=== PATIENT | male | born 1995 | race Caucasian/White ===

== ENCOUNTER 2017-02-26 10:33 | Outpatient (CLI) | payer MEDICAID | END 2017-02-26 10:34 | disposition home or self-care (01) | LOC: SC 10:33 | PROVIDERS: ATTEND Internal Medicine Pulmonary Disease | DX: G47.30 Sleep apnea, unspecified (principal); G47.10 Hypersomnia, unspecified; R06.83 Snoring; G47.8 Other sleep disorders | CPT/HCPCS: 99203; 99212 ==

== ENCOUNTER 2017-03-01 10:10 | Day surgery (SDC) | payer MEDICAID ==
[2017-03-01] MEDS ORDERED: AMPICILLIN/SULBACTAM 3 GM in SODIUM CHLORIDE 0.9% MINIBAG 100 ML IV ONE (10:11)
[2017-03-01] MEDS ORDERED: LACTATED RINGERS 1,000 ML IV ONE ×2 (10:18→13:29)
[2017-03-01] MEDS ORDERED: METHYLENE BLUE 0.5% 50 MG/10 ML AMPULE IR ONE (12:44)
[2017-03-01] MEDS ORDERED: BUPIVACAINE 0.5% PF 30 ML VIAL INFIL ONE ×2 (12:44)
[2017-03-01] MEDS ORDERED: SUCCINYLCHOLINE 200 MG/10 ML VIAL IVP ONE (12:45)
[2017-03-01] MEDS ORDERED: MIDAZOLAM 2 MG/2 ML VIAL IVP ONE (12:45)
[2017-03-01] MEDS ORDERED: ONDANSETRON 4 MG/2 ML VIAL IVP ONE (12:45)
[2017-03-01] MEDS ORDERED: PROPOFOL 200 MG/20 ML VIAL IVP ONE (12:45)
[2017-03-01] MEDS ORDERED: LIDOCAINE-MPF 2% 5 ML VIAL IM ONE (12:45)
[2017-03-01] MEDS ORDERED: fentaNYL 100 MCG/2 ML VIAL IVP ONE (12:45)
[2017-03-01] MEDS ORDERED: DEXAMETHASONE 4 MG/ML VIAL IVP ONE (12:45)
[2017-03-01] MEDS ORDERED: ROCURONIUM 50 MG/5 ML VIAL IVP ONE (12:45)
[2017-03-01] MEDS: HYDROmorphone 1 MG/ML SYRINGE ONE ×2 (13:28→13:43)
[2017-03-01] MEDS ORDERED: ACETAMINOPHEN 1,000 MG/100 ML 100 ML IV ONE (13:31)
[2017-03-01] MEDS ORDERED: HYDROcod/ACETAM 5/325 MG TABLET ONE (14:33)
[2017-03-01 14:55] VITALS: BP 135/77
--- NOTE | 2017-03-04 05:49 | OPERATIVE REPORT ---
DATE OF SURGERY: 03/01/2017 00:00:00 PREOPERATIVE DIAGNOSIS: Recurrent pilonidal cyst disease. POSTOPERATIVE DIAGNOSIS: Recurrent pilonidal cyst disease. NAME OF PROCEDURE: OPERATING SURGEON: Julio Chen MD ANESTHESIA: General. INDICATIONS FOR PROCEDURE: The patient is a 21-year-old male who had underwent a pilonidal cyst excis ion with primary closure a year ago. He has now noticed drainage. On physical exam, he has a pit just inferior to his previously placed incisional scar. This appears to have developed since his surgery. He would like to have the area excised as it does occasionally drain and cause discomfort. FINDINGS AT PROCEDURE: The patient had a depression at the end of his previous incisional scar. This could represent a pit that had enlarged versus scar tissue pulling out the tissue and creating the pi t. This will be a set up for further infection and drainage, whether it is a recurrence or just a dep ression. Therefore, it is recommended he undergo excision of this area. FINDINGS AT SURGERY: The patient's abnormality at the inferior portion of his previous incisional sca r in the cleft was completely excised. Due to the size of the wound being small it was primaril y closed. PROCEDURE: After informed consent was obtained, the patient was taken to the operating room and place d in supine position. General anesthesia administered. He was then placed in a prone position. The pa tient's buttocks and anal area was then prepped and draped in usual sterile fashion. An elliptical in cision was then made in the lower portion of the brian cleft to include this abnormal depression. It was completely excised in the subcutaneous tissue. The wound was irrigated and hemostasis was obtaine d using electrocautery. The wound was then approximated using interrupted 3-0 Vicryl suture. The skin was closed using 4-0 Monocryl subcuticular stitch. Dermabond was then applied. The patient was then placed in a supine position, awakened, extubated and taken from the operating room in stable conditio n. ESTIMATED BLOOD LOSS: Minimal. COMPLICATIONS: None. CONDITION OF THE PATIENT AT END OF PROCEDURE: Stable. SPECIMENS: Recurrent pilonidal cyst disease. DRAINS/PACKS: None. CLASSIFICATION OF WOUND: Clean contaminated. JOB #: [id number] EXT JOB #:[id number]
== END 2017-03-01 10:11 | disposition home or self-care (01) ==
LOC: SDS 10:10
PROVIDERS: ATTEND Surgery
PROC: 0JB90ZZ Excision of Buttock Subcutaneous Tissue and Fascia, Open Approach (ICD-10-PCS; principal; 2017-03-01 11:15)
DX: L05.91 Pilonidal cyst without abscess (principal)
CPT/HCPCS: 11770; A9270; J0131; J1170; J7120